=== PATIENT | female | born 1975 | race Caucasian/White ===

== ENCOUNTER 2018-08-02 15:41 | Emergency (ER) | payer SELFPAY ==
[2018-08-02 16:19] VITALS: BP 139/79
--- NOTE | 2018-08-02 17:26 | UC ---
Upper Extremity HPI - HPI Summary HPI Summary: 43 y/o female presents to the urgent care c/o left shoulder and upper arm pain s /p carrying a kerosene heater yesterday around 1600pm. Pt reports the heater was falling and she thinks she grabbed it in the wrong way. Pain is sharp, 7/ 10 w/ certain movement and at rest is 2/10 and constant. Pt took an Ibuprofen 800 PO for pain. 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 Pt recently changed Insurance and it is trying to get an appt w/ new PCP and requests medication refill for her DM type II and HTN until she can see her PCP. Pt denies Numbness and tingling sensation over the left upper extremity, SOB, chest pain, abdominal pain, neck pain, N/V/D. - History of Current Complaint Chief Complaint: UCUpperExtremity Stated Complaint: LEFT ARM INJURY Time Seen by Provider: 08/02/18 16:52 Hx Obtained From: Patient Hx Last Menstrual Period: 07/19/18 has had tubal ?: No Onset/Duration: Sudden Onset, Lasting Days - 1 day, Still Present, Worse Since - today Severity Initially: Mild Severity Currently: Mild Pain Intensity: 2 Pain Scale Used: 0-10 Numeric Location Of Pain: Is Discrete @ - left upper arm, Radiates To - left shoulder Character: Sharp - w/ movement Aggravating Factor(s): Movement, Lifting, Extension, Abduction Alleviating Factor(s): Ice, OTC Meds, Rest Associated Signs And Symptoms: Positive: Negative. Negative: Swelling, Redness , Bruising, Fever, Weakness, Numbness/Tingling Related History: Dominant Hand Right - Risk Factors Non-Orthopedic Risk Factor: Negative DVT Risk Factors: Negative Septic Arthritis Risk Factor: Negative - Allergies/Home Medications Allergies/Adverse Reactions: Allergies Allergy/AdvReac Type Severity Reaction Status Date / Time No Known Allergies Allergy Verified 08/02/18 16:19 Home Medications: Home Medications Albuterol HFA INHALER* [Ventolin HFA Inhaler*] 2 puff INH Q4H PRN 08/02/18 [ History Confirmed 08/02/18] glipiZIDE TAB* [Glucotrol TAB*] 7.5 mg PO BID 08/02/18 [History Confirmed ] PMH/Surg Hx/FS Hx/Imm Hx Previously Healthy: Yes Endocrine History: Diabetes Cardiovascular History: Hypertension Respiratory History: Asthma - Surgical History Surgical History: Yes Surgery Procedure, Year, and Place: tubal. 2 c-sections - Family History Known Family History: Positive: Hypertension - Social History Occupation: Employed Full-time Lives: With Family Alcohol Use: None Substance Use Type: None Smoking Status (MU): Heavy Every Day Tobacco Smoker Type: Cigarettes Amount Used/How Often: 3/4 to 1 ppd Review of Systems Constitutional: Negative Skin: Negative Eyes: Negative ENT: Negative Respiratory: Negative Cardiovascular: Negative Gastrointestinal: Negative Genitourinary: Negative Motor: Negative Neurovascular: Negative Musculoskeletal: Decreased ROM - left shoulder, Other: - left shoulder and upper ar pain s/p injury Neurological: Negative Psychological: Negative Is Patient Immunocompromised?: No All Other Systems Reviewed And Are Negative: Yes Physical Exam - Summary Physical Exam Summary: Vital Signs Reviewed: Yes GENERAL: Well-Appearing, No Pain Distress, Well-Nourished obese female w/o any apparent pain distress Eyes: Positive: Conjunctiva Clear - PERRL,EOMI ENT: Positive: Normal ENT inspection, Hearing grossly normal, Pharyngeal erythema - mild, Nasal drainage - clear, Uvula midline Neck: Positive: Supple, Nontender, No Lymphadenopathy Respiratory: Positive: Chest non-tender, Lungs clear, Normal breath sounds, No respiratory distress Cardiovascular: Positive: RRR, No Murmur, Pulses Normal, Brisk Capillary Refill Abdomen Description: Positive: Nontender, No Organomegaly, Soft. Negative: CVA Tenderness (R), CVA Tenderness (L) Bowel Sounds: Positive: Present Musculoskeletal: LF shoulder and upper arm: The L shoulder is without obvious asymmetry or deformity when compared to the R shoulder. NO ecchymosis and bruising, no crepitus. No bony deformity or prominence of humeral head. No erythema, warmth. No Point Tenderness to palpation over the clavicle, or scapula. positive tenderness over Acromioclavicular joint and humeral head with mild swelling, NT to palpation of the bicipital groove . NT to palpation of the muscles of the sternocleidomastoid, pectoralis, biceps/triceps , deltoid, trapezius, . Limited ROM due to pain especially in adduction and abduction.on both passive and active, internal/external rotation, flexion/ extension. "empty can and drop arm test unable to perform due to pain. No axillary tenderness or lymphadenopathy. Normal sensation over the deltoid and fingers. Distal motor and neurovascular status is intact. Neurological Exam: Normal Psychological Exam: Normal Skin Exam: Normal Triage Information Reviewed: Yes Vital Signs: Initial Vital Signs Temp 98.3 F 08/02/18 16:13 Pulse 81 08/02/18 16:13 Resp 17 08/02/18 16:13 BP 139/79 08/02/18 16:13 Pulse Ox 97 08/02/18 16:13 Upper Extremity Course/Dx - Course Course Of Treatment: 43 y/o female presents to the urgent care c/o left shoulder and upper arm pain s/p carrying a kerosene heater yesterday around 1600pm. Pt reports the heater was falling and she thinks she grabbed it in the wrong way. Pain is sharp, 7/10 w/ certain movement and at rest is 2/10 and constant. Pt took an Ibuprofen 800 PO for pain. 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 Pt recently changed Insurance and it is trying to get an appt w/ new PCP and requests medication refill for her DM type II and HTN until she can see her PCP. Pt denies Numbness and tingling sensation over the left upper extremity, SOB, chest pain, abdominal pain, neck pain, N/V/D. Hx obtained. LF shoulder X-ray ordered: Impression: Negative for fracture or dislocation observed. Pt's Rx Ibuprofen PO to alleviate symptoms. Shoulder immobilized with a shoulder sling for 3-4days. Advised to f/u with PT referral for further evaluation and Orthopedic Dr Bacon referral if not improvement of symptoms.Medication Refill for Metformin PO and Atenolol PO for 1 week sent to pharmacy and strongly advised to f/u w/ new PCP for further maanagement. D/c instructions explained. Pt understood and agreed w/ plan of care. - Differential Dx/Diagnosis Differential Diagnosis/HQI/PQRI: Contusion, Fracture (Closed), Strain, Sprain, Other - tendonitis Provider Diagnoses: 1- Left upper arm pain s/p injury. 2- Left shoulder sprain. 3- HTN. 4- DM type II Discharge - Sign-Out/Discharge Documenting (check all that apply): Patient Departure - D/C home All imaging exams completed and their final reports reviewed: Yes - Discharge Plan Condition: Stable Disposition: HOME Prescriptions: Atenolol TAB* [Tenormin TAB* 50 MG] 50 mg PO DAILY #7 tab Ibuprofen TAB* [Motrin TAB* 800 MG] 800 mg PO ONCE PRN #30 tab PRN Reason: Pain metFORMIN* [Glucophage 850 MG TAB *] 850 mg PO BID #14 tab Patient Education Materials: Shoulder Sprain (ED), Low-Sodium Diet (ED) Referrals: [facility] [place] [facility] [Outside] - 1 Week Chuy Bacon MD [Medical Doctor] - 1 Week Additional Instructions: 1-Please take medications as directed to alleviate pain and swelling. 2-Please apply ice, keep your shoulder immobilized with the shoulder sling for 3 -4 days and then resume movement slowly 3- Please f/u with Orthopedic DR Bacon or your PCP in 1 week is not improvement of symptoms for further evaluation and treatment. 4- F/U physical therapy referral for further management. 5- You were given refill for 1 week for Metformin and Atenolol PO please f/u w/ your PCP as soon as possible for further management in your DM type II and HTN - Billing Disposition and Condition Condition: STABLE Disposition: Home
--- NOTE | 2018-08-02 18:11 | RAD ---
INDICATION: Left shoulder injury. TECHNIQUE: 4 views of the left shoulder were obtained. FINDINGS: The bones are in normal alignment. No fracture is seen. Joint spaces appear maintained. IMPRESSION: NO EVIDENCE OF FRACTURE.
--- NOTE | 2018-08-02 18:11 | RAD ---
INDICATION: Left humerus injury. TECHNIQUE: 2 views of the left humerus were obtained. FINDINGS: The bones are in normal alignment. No fracture is seen. IMPRESSION: NO EVIDENCE FOR FRACTURE.
== END 2018-08-02 18:34 | disposition home or self-care (01) ==
LOC: UCCORT 15:41
DX: S43.402A Unspecified sprain of left shoulder joint, initial encounter (principal); S49.92XA Unspecified injury of left shoulder and upper arm, initial encounter; X50.0XXA Overexertion from strenuous movement or load, initial encounter; Y93.89 Activity, other specified; Y92.9 Unspecified place or not applicable; I10 Essential (primary) hypertension; E11.9 Type 2 diabetes mellitus without complications; Z79.84 Long term (current) use of oral hypoglycemic drugs; F17.210 Nicotine dependence, cigarettes, uncomplicated
CPT/HCPCS: 99203; G0463

== ENCOUNTER 2018-08-21 10:51 | Emergency (ER) | payer BC ==
--- NOTE | 2018-08-21 11:17 | UC ---
Upper Extremity HPI - HPI Summary HPI Summary: L arm pain after falling in pothole. She feels its fractured. Pain w/ movement especially when lifting her arm outward. denies neck pain or elbow pain. - History of Current Complaint Chief Complaint: UCUpperExtremity Stated Complaint: R ARM INJURY FROM A FALL Time Seen by Provider: 08/21/18 11:12 Hx Obtained From: Patient Hx Last Menstrual Period: 07/19/18 has had tubal ?: No Onset/Duration: Sudden Onset Severity Initially: Moderate Severity Currently: Moderate Pain Intensity: 8 Pain Scale Used: 0-10 Numeric Location Of Pain: Is Discrete @ - L shoulder/arm. denies radiation. Aggravating Factor(s): Movement, Lifting, Extension, Internal/External Rotation , Abduction Alleviating Factor(s): OTC Meds, Rest Associated Signs And Symptoms: Positive: Swelling, Redness - Risk Factors Non-Orthopedic Risk Factor: Negative - Allergies/Home Medications Allergies/Adverse Reactions: Allergies Allergy/AdvReac Type Severity Reaction Status Date / Time No Known Allergies Allergy Verified 08/21/18 11:13 PMH/Surg Hx/FS Hx/Imm Hx Endocrine History: Diabetes Cardiovascular History: Hypertension - Surgical History Surgical History: Yes Surgery Procedure, Year, and Place: tubal. 2 c-sections - Family History Known Family History: Positive: Hypertension - Social History Alcohol Use: None Substance Use Type: None Smoking Status (MU): Heavy Every Day Tobacco Smoker Type: Cigarettes Amount Used/How Often: 3/4 to 1 ppd Review of Systems Constitutional: Negative Skin: Negative Respiratory: Negative Cardiovascular: Negative Motor: Decreased ROM, Other - +pain in L shoulder/arm Neurovascular: Negative Musculoskeletal: Edema - L arm, Myalgia - L arm All Other Systems Reviewed And Are Negative: Yes Physical Exam Triage Information Reviewed: Yes Appearance: Well-Appearing, No Pain Distress Vital Signs Reviewed: Yes Neck: Positive: Supple, Other: - FROM Respiratory Exam: Normal Cardiovascular Exam: Normal Musculoskeletal: Positive: Strength Limited @ - L shoulder due to pain, ROM Limited @ - L shoulder. L elbow and wrist have FROM w/ no pain., Edema @ - MId- humerus w/ mild tenderness Neurological: Positive: Muscle Tone Normal - at L arm Psychological: Positive: Age Appropriate Behavior Skin Exam: Normal - No open areas. Diagnostics - Radiology No standard instances Radiology Interpretation Completed By: Radiologist - IMPRESSION: QUESTIONABLE NONDISPLACED FRACTURE OF THE ACROMION. RECOMMEND CORRELATION WITH SITE OF PAIN. Upper Extremity Course/Dx - Differential Dx/Diagnosis Differential Diagnosis/HQI/PQRI: Contusion, Fracture (Open), Fracture (Closed), Hematoma, Strain, Sprain Provider Diagnoses: L shoulder contusion with questionable acromion fracture. Discharge - Sign-Out/Discharge Documenting (check all that apply): Patient Departure All imaging exams completed and their final reports reviewed: Yes - Discharge Plan Condition: Good Disposition: HOME Patient Education Materials: Suspected Fracture (ED) Referrals: [facility] [Outside] No Primary Care Phys,NOPCP [Primary Care Provider] - Chuy Bacon MD [Medical Doctor] - Additional Instructions: There is a questionable nondisplaced fracture at the Left shoulder joint/ acromion. for now we will put in sling and take advil every 6 hrs. When you get home call and make appt with dr. bacon the bone - Billing Disposition and Condition Condition: GOOD Disposition: Home
[2018-08-21 11:18] VITALS: BP 140/77
--- NOTE | 2018-08-21 12:01 | RAD ---
HISTORY: fall on L shoulder COMPARISONS: None VIEWS: 2 , Frontal internal rotation and external rotation views of the left humerus FINDINGS: BONE DENSITY: Normal. BONES: There is no displaced fracture. JOINTS: There is no arthropathy. ALIGNMENT: There is no dislocation. SOFT TISSUES: Unremarkable. OTHER FINDINGS: None. IMPRESSION: NO ACUTE OSSEOUS INJURY. IF SYMPTOMS PERSIST, RECOMMEND REPEAT IMAGING.
--- NOTE | 2018-08-21 12:02 | RAD ---
HISTORY: fall on L shoulder COMPARISONS: None VIEWS: 4 , Frontal internal rotation, external rotation, outlet, and axillary views of the left shoulder FINDINGS: BONE DENSITY: Normal. BONES: There is a questionable nondisplaced fracture of the acromion. JOINTS: There is no arthropathy. ALIGNMENT: There is no dislocation. SOFT TISSUES: Unremarkable. OTHER FINDINGS: None. IMPRESSION: QUESTIONABLE NONDISPLACED FRACTURE OF THE ACROMION. RECOMMEND CORRELATION WITH SITE OF PAIN.
== END 2018-08-21 12:25 | disposition home or self-care (01) ==
LOC: UCCORT 10:51
DX: S40.012A Contusion of left shoulder, initial encounter (principal); W17.2XXA Fall into hole, initial encounter; Y92.9 Unspecified place or not applicable; E11.9 Type 2 diabetes mellitus without complications; F17.210 Nicotine dependence, cigarettes, uncomplicated; I10 Essential (primary) hypertension
CPT/HCPCS: 99213; G0463

== ENCOUNTER 2018-10-22 12:34 | Emergency (ER) | payer BC ==
[2018-10-22 13:35] VITALS: BP 148/84
--- NOTE | 2018-10-22 14:28 | UC ---
Respiratory Complaint HPI - HPI Summary HPI Summary: Pt present with c/o worsening cough, generalized fatigue and malaise x10 days. - History of Current Complaint Chief Complaint: UCRespiratory Stated Complaint: SORE THROAT,COUGH Time Seen by Provider: 10/22/18 14:07 Hx Obtained From: Patient Hx Last Menstrual Period: Irregular (s/p tubal ligation) ?: No Onset/Duration: Gradual Onset, Lasting Days, Still Present, Worse Since - onset Timing: Constant Severity Initially: Mild Severity Currently: Moderate Pain Intensity: 0 Character: Cough: Nonproductive Aggravating Factors: Exertion, Deep Breaths, Recumbent Position Alleviating Factors: Nothing Associated Signs And Symptoms: Positive: URI - Risk Factors Pulmonary Embolism Risk Factors: Negative Cardiac Risk Factors: Diabetes Pseudomonas Risk Factors: Negative Tuberculosis Risk Factors: Diabetes - Allergies/Home Medications Allergies/Adverse Reactions: Allergies Allergy/AdvReac Type Severity Reaction Status Date / Time No Known Allergies Allergy Verified 10/22/18 13:30 Home Medications: Home Medications Ibuprofen TAB* [Motrin TAB* 800 MG] 800 mg PO Q8H PRN 10/22/18 [History Confirmed 10/22/18] PMH/Surg Hx/FS Hx/Imm Hx Previously Healthy: Yes Endocrine History: Diabetes Cardiovascular History: Cardiac Disease - Surgical History Surgical History: Yes Surgery Procedure, Year, and Place: Tubal Ligation, 1997, ; C-Sections, 1997 - Family History Known Family History: Positive: Hypertension - Social History Occupation: Employed Full-time Lives: With Family Alcohol Use: None Substance Use Type: None Smoking Status (MU): Heavy Every Day Tobacco Smoker Type: Cigarettes Amount Used/How Often: 1 PPD Length of Time of Smoking/Using Tobacco: Since Age 18 Have You Smoked in the Last Year: Yes Household Exposure Type: Cigarettes Review of Systems All Other Systems Reviewed And Are Negative: Yes Constitutional: Positive: Fatigue Skin: Positive: Negative Eyes: Positive: Negative ENT: Positive: Sinus Congestion Respiratory: Positive: Cough Cardiovascular: Positive: Negative Gastrointestinal: Positive: Negative Genitourinary: Positive: Negative Motor: Positive: Negative Neurovascular: Positive: Negative Musculoskeletal: Positive: Negative Neurological: Positive: Negative Psychological: Positive: Negative Is Patient Immunocompromised?: No Physical Exam Triage Information Reviewed: Yes Appearance: Ill-Appearing Vital Signs: Initial Vital Signs Temp 98.1 F 10/22/18 13:28 Pulse 90 10/22/18 13:28 Resp 24 10/22/18 13:28 BP 148/84 10/22/18 13:28 Pulse Ox 97 10/22/18 13:28 Vital Signs Reviewed: Yes Eye Exam: Normal ENT: Positive: Nasal congestion Dental Exam: Normal Neck exam: Normal Respiratory: Positive: Wheezing Cardiovascular Exam: Normal Musculoskeletal Exam: Normal Neurological Exam: Normal Psychological Exam: Normal Skin Exam: Normal UC Diagnostic Evaluation - Laboratory O2 Sat by Pulse Oximetry: 97 Respiratory Course/Dx - Differential Dx/Diagnosis Differential Diagnosis/HQI/PQRI: Bronchitis, Influenza Provider Diagnosis: Bronchitis Discharge - Sign-Out/Discharge Documenting (check all that apply): Patient Departure All imaging exams completed and their final reports reviewed: No Studies - Discharge Plan Condition: Stable Disposition: HOME Prescriptions: Albuterol 2.5MG/3ML (0.083%)* [Ventolin 2.5 MG/3 ML NEB.CAL*] 2.5 mg INH Q4H PRN #1 box PRN Reason: Sob/Wheezing Azithromycin TAB* [Zithromax TAB (Z-WALLY) 250 mg #6 tabs] 2 tab PO .TODAY, THEN 1 DAILY #1 wally Codeine Phosphate/Guaifenesin [Guaifen-Codeine 100-10 mg/5 ml] 5 ml PO BEDTIME PRN #15 ml MDD 5 ml PRN Reason: Cough predniSONE TAB* [Deltasone 20 MG TAB*] 20 mg PO DAILY #4 tab Patient Education Materials: Acute Bronchitis (ED) Referrals: [facility] [Outside] - If Needed No Primary Care Phys,NOPCP [Primary Care Provider] - - Billing Disposition and Condition Condition: STABLE Disposition: Home
== END 2018-10-22 14:40 | disposition home or self-care (01) ==
LOC: UCCORT 12:34
DX: J40 Bronchitis, not specified as acute or chronic (principal); F17.210 Nicotine dependence, cigarettes, uncomplicated
CPT/HCPCS: 99212; G0463